=== PATIENT | female | born 1990 | race African-American/Black ===

== ENCOUNTER → 2020-09-10 09:33 | Outpatient (BNVA) | payer SELFPAY | DX: Z02.1 Encounter for pre-employment examination (principal) ==

== ENCOUNTER 2021-02-12 11:20 | Outpatient (REF) | payer OTHER, SELFPAY ==
--- NOTE | ~2021-02-12 | XR_ITS ---
EXAMINATION: XR FOOT, RIGHT XR FOOT, LEFT CLINICAL INFORMATION: Bilateral foot pain, M 79.671 COMPARISON: None TECHNIQUE: Each foot is imaged in 3 views. There are total of 6 views. FINDINGS: Right: No acute or healing fracture, dislocation, or destructive process. Normal bony mineralization. No joint narrowing or erosive change. The retrocalcaneal recess is preserved. Subtalar joint unremarkable. No calcaneal spurring. Left: No acute or healing fracture, dislocation, or destructive process. Normal bony mineralization. No joint narrowing or erosive change. The retrocalcaneal recess is preserved. Subtalar joint unremarkable. No definite calcaneal spurring. XR/XR foot RT min 3V IMPRESSION: No fracture, dislocation, or arthropathy.
--- NOTE | ~2021-02-12 | XR_ITS ---
EXAMINATION: XR FOOT, RIGHT XR FOOT, LEFT CLINICAL INFORMATION: Bilateral foot pain, M 79.671 COMPARISON: None TECHNIQUE: Each foot is imaged in 3 views. There are total of 6 views. FINDINGS: Right: No acute or healing fracture, dislocation, or destructive process. Normal bony mineralization. No joint narrowing or erosive change. The retrocalcaneal recess is preserved. Subtalar joint unremarkable. No calcaneal spurring. Left: No acute or healing fracture, dislocation, or destructive process. Normal bony mineralization. No joint narrowing or erosive change. The retrocalcaneal recess is preserved. Subtalar joint unremarkable. No definite calcaneal spurring. XR/XR foot LT min 3V IMPRESSION: No fracture, dislocation, or arthropathy.
== END 2021-02-12 11:21 | disposition home or self-care (01) ==
LOC: HO.HMGCX 11:20
PROVIDERS: Visit Provider Physician Assistant
DX: M79.671 Pain in right foot (principal); M79.672 Pain in left foot
CPT/HCPCS: 73630

== ENCOUNTER 2021-04-03 12:42 | Outpatient (RCR) | payer OTHER, SELFPAY ==
--- NOTE | 2021-04-03 14:06 | MHC.PT.EP ---
[facility] [place] [facility] [place] [facility] [place] [facility] [address] [phone] F: [phone] F: [phone] F: [phone] F: [phone] Physical Therapy Plan of Care Date of Evaluation: Date of Surgery: n/a Diagnosis: R foot pain Assessment: Patient is a 31 year old R handed female [employer] who presents with s/s consistent with R foot pain. She works with daily job demands including student nursing. Patient past medical history includes obesity but it otherwise unremarkable. Current impairments include pain, strength, activity tolerance and functional mobility. Functional limitations include decreased ability to transfer and walk. Patient is motivated with good rehab potential. Skilled PT will address impairments and functional limitations in order to achieve goals. Frequency and Duration: The patient will be seen 1x/week for 4 weeks Short Term Goals: I with HEP - 2 weeks Pain free transfers - 2 weeks Shelter Goals: LEFS 78/80 - 4 weeks Hip strength 4+/5 grossly - 4 weeks Treatment Plan: Modalities to reduce pain, spasms and effusion. Manual therapy to restore motion and function. Therapeutic exercise to improve strength and flexibility. Neuromuscular re-education for posture and balance. Therapeutic activities to return to functional activities of daily living. Electronically signed by: Tan Carbajal PT Please sign and return to therapist. Thank you for your referral.
--- NOTE | 2021-10-31 08:57 | MHC.PT.DC ---
[facility] [place] Office [place] Office [place] Office [address] Syd [address] [phone] F: [phone] F: [phone] F: [phone] F: [phone] Physical Therapy Discharge Report Diagnosis: R foot pain Date of Surgery: n/a Date of Evaluation: 04/03/21 Date of Discharge: 04/15/21 Treatments to Date: 1 Cancellations to Date: No Shows to Date: Discharge Status: Patient Elected to Stop Discharge Summary: Pt did not return after PT eval. 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 She works with daily job demands including student nursing. Patient past medical history includes obesity but it otherwise unremarkable. Current impairments include pain, strength, activity tolerance and functional mobility. Functional limitations include decreased ability to transfer and walk. Patient is motivated with good rehab potential. Skilled PT will address impairments and functional limitations in order to achieve goals. Electronically signed by: Tan Carbajal, PT Please sign and return to therapist. Thank you for your referral.
== END 2021-10-31 08:57 | disposition home or self-care (01) ==
LOC: HO.PTCHIC 12:42
PROVIDERS: Visit Provider Physician Assistant
DX: M79.671 Pain in right foot (principal); M79.672 Pain in left foot
CPT/HCPCS: 97110; 97161